=== PATIENT | female | born 1955 | race Caucasian/White ===

== ENCOUNTER 2016-09-16 08:13 | Inpatient (IN) | payer BC ==
[~2016-09-16 08:13] MED LIST: ALBUTEROL SULF8.5 GM IH; ARICEPT5 M1 PO; ASPIR-TRIN325 M2 PO; ASPIRIN325 MG PO; BIOTIN5000 MCG PO; BREO ELLIPTA 11 EAC1 INH; CELEBREX100 M1 PO; COLACE100 M1 PO; COZAAR100 M1 PO; COZAAR100 MG PO; CUBICIN500 MG/10 IV; CULTURELLE1 EAC1 PO; CYCLOBENZAPRINE10 M1 PO; DITROPAN XL15 M1 PO; DITROPAN XL5 M3 PO; DITROPAN5 M1 PO; DOXYCYCLINE HY100 M3 PO; EFFEXOR XR150 M1 PO; EFFEXOR XR75 M1 PO; EFFEXOR75 M1 PO; EFFEXOR75 M2 PO; FOLIC ACID1 M1 PO; GABAPENTIN300 M1 PO; HARD NAILS PO; HYDROCORTISONE28 G2 TOP; IRON325 M2 PO; LAMISIL250 MG PO; LOSARTAN POTAS100 M1 PO; LYRICA50 MG/CAP NG; MACROBID 100 M100 M1 PO; METAMUCIL0.52 G1 PO; METOPROLOL SUCC50 M1 PO; METOPROLOL SUCC50 MG PO; MIRALAX17 G2 PO; NAPROXEN500 M1 PO; NASONEX17 G1; NASONEX17 G1 NS; NASONEX17 GM NS; OMEPRAZOLE40 MG PO; OXYCODONE-ACET1 EAC3 PO; PERCOCET 5-3251 EACH PO; PERCOCET 5/3251 TAB PO; PREMARIN VAG CR45 GM OTHER; PRILOSEC40 M1 PO; PROAIR HFA8.5 GM INH; RIFAMPIN300 M1 PO; ROPINIROLE HCL2 MG PO; SENOKOT8.6 M1 PO; SINGULAIR10 M1 PO; SINGULAIR10 MG PO; SM SENNA-S TAB1 EACH PO; SYMBICORT 160-1 PUFF INH; SYMBICORT 160-4.6 GM IH; SYNTHROID112 MC1 PO; SYNTHROID112 MCG PO; SYNTHROID150 MC1 PO; TOPROL XL50 M1 PO; TYLENOL325 M1 PO; TYLENOL325 M2 PO; VITAMIN B 6 PO; VITAMIN B-650 M3 PO; VITAMIN B12-FO1 EAC1 PO; VITAMIN B122500 MCG PO; VITAMIN D35000 UNI2 PO; ZYRTEC10 M7 PO; ZYRTEC10 MG PO; [UNRECOGNIZED DRUG - SUPPLY]
[2016-09-16 10:03] LABS: PROTHROMBIN TIME 11.4 SECONDS (9.0-13.6)
[2016-09-17 04:09] LABS: HCT-HEMATOCRIT 30.6 % (34.0-49.0); HGB-HEMOGLOBIN 10.1 gm/dl (12.0-15.5); MCH (MEAN CORPUSCULAR HGB) 31.9 pg (28.0-32.0); MCV (MEAN CELL VOLUME) 96.5 fl (82.0-96.0); MEAN PLATELET VOLUME 9.5 cmc (9.4-12.4); PLATELET COUNT 230 tho/cmm (150-450); RED BLOOD COUNT 3.17 mil/cmm (4.00-5.20); RED CELL DISTRIBUTION WIDTH 12.8 % (12.4-16.4); WHITE BLOOD COUNT 10.9 tho/cmm (4.0-10.0)
[2016-09-17 05:50] LABS: BAND % 15 % (0-20); BAND ABSOLUTE COUNT 1.6 tho/cmm (0-2.0)
[2016-09-17] MEDS ORDERED: ASPIRIN81 M1 PO (12:02)
[2016-09-17] MEDS ORDERED: MOBIC15 M2 PO (12:03)
[2016-09-17] MEDS ORDERED: OXYCODONE HCL5 M1 PO (12:04)
[2016-09-17] MEDS ORDERED: ULTRAM50 M1 PO (12:06)
[2016-09-17] MEDS ORDERED: TYLENOL325 M2 PO (12:07)
== END 2016-09-17 14:36 | DRG 470 ==
LOC: SHSC 08:13 → ORE 11:03 → PACU 12:55 → 5EA 14:45
PROVIDERS: Physician Assistant Surgical; ADMIT Orthopaedic Surgery Foot and Ankle Surgery
PROC: 0SR904Z Replacement of Right Hip Joint with Ceramic on Polyethylene Synthetic Substitute, Open Approach (ICD-10-PCS; principal; 2016-09-16)
DX: M16.11 Unilateral primary osteoarthritis, right hip (principal); I10 Essential (primary) hypertension; D62 Acute posthemorrhagic anemia; R00.0 Tachycardia, unspecified; R41.3 Other amnesia; E78.5 Hyperlipidemia, unspecified; K21.9 Gastro-esophageal reflux disease without esophagitis; M79.7 Fibromyalgia; D72.829 Elevated white blood cell count, unspecified; E03.9 Hypothyroidism, unspecified; F43.21 Adjustment disorder with depressed mood; R41.82 Altered mental status, unspecified; R27.9 Unspecified lack of coordination
CPT/HCPCS: C1776; J0171; J1170; J1885; J2250; J2405; J2550; J2795; J3010